=== PATIENT | male | born 1930 | race Caucasian/White ===

== ENCOUNTER 2018-03-27 15:21 | Inpatient (IN) ==
[2018-03-27] MEDS ORDERED: Diphtheria/Tetanus/Pertussis Vaccine Inj 0.5 ML Syringe IM ONE (15:25)
[2018-03-27] MEDS ORDERED: ceFAZolin 2 GM Premix Inj 2 GM/50 ML PIGGYBACK IV.SIG ONE (15:25)
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
[2018-03-27 15:41] LABS: Baso # (Auto) 0.1 th/mm3 (0.0-0.2); Baso % (Auto) 0.8 % (0.0-2.0); Eos # (Auto) 0.6 th/mm3 (0.0-0.4); Eos % (Auto) 5.5 % (0.0-4.0); Hematocrit 36.8 % (39.0-51.0); Hemoglobin 12.5 gm/dL (13.0-17.0); Lymph # (Auto) 2.4 th/mm3 (1.0-4.8); Lymph % (Auto) 22.6 % (9.0-44.0); Mean Corpuscular HGB Conc 33.9 % (32.0-36.0); Mean Corpuscular Hemoglobin 32.7 pg (27.0-34.0); Mean Corpuscular Volume 96.5 fL (80.0-100.0); Mean Platelet Volume 9.1 fL (7.0-11.0); Mono # (Auto) 0.9 th/mm3 (0.0-0.9); Mono % (Auto) 8.7 % (0.0-8.0); Neut # (Auto) 6.7 th/mm3 (1.8-7.7); Neut % (Auto) 62.4 % (16.0-70.0); Platelet Count 184 th/mm3 (150-450); Red Blood Count 3.81 mil/mm3 (4.50-5.90); Red Cell Distribution Width 15.1 % (11.6-17.2); White Blood Count 10.7 th/mm3 (4.0-11.0)
[2018-03-27 15:57] LABS: Activated Partial Thrombo Time 22.4 sec (24.3-30.1); Prothrombin Time 10.2 sec (9.8-11.6)
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
[2018-03-27] MEDS ORDERED: Lidocaine 1% Inj 50 ML Vial INFILTRATN ONE (18:09)
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
[2018-03-27] MEDS ORDERED: Acetaminophen 325 MG Tablet PO PRN (18:43)
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
[2018-03-27] MEDS: Docusate Sodium 100 MG Capsule PO SCH (21:13)
[2018-03-28] MEDS ORDERED: Chlorhexidine Gluconate 2% 1 Pack (2 Cloths) TOPICAL SCH (04:00)
[2018-03-28] MEDS ORDERED: Chlorhexidine Gluconate 2% 1 Pack (2 Cloths) TOPICAL PRN (04:00)
[2018-03-28 06:49] LABS: Baso # (Auto) 0.1 th/mm3 (0.0-0.2); Baso % (Auto) 0.7 % (0.0-2.0); Eos # (Auto) 0.6 th/mm3 (0.0-0.4); Eos % (Auto) 5.1 % (0.0-4.0); Hematocrit 34.4 % (39.0-51.0); Hemoglobin 11.3 gm/dL (13.0-17.0); Lymph # (Auto) 1.7 th/mm3 (1.0-4.8); Lymph % (Auto) 15.3 % (9.0-44.0); Mean Corpuscular Hemoglobin 32.2 pg (27.0-34.0); Mean Corpuscular Volume 97.7 fL (80.0-100.0); Mean Platelet Volume 9.5 fL (7.0-11.0); Mono % (Auto) 9.2 % (0.0-8.0); Neut # (Auto) 7.7 th/mm3 (1.8-7.7); Neut % (Auto) 69.7 % (16.0-70.0); Platelet Count 166 th/mm3 (150-450); Red Blood Count 3.52 mil/mm3 (4.50-5.90)
[2018-03-28 07:22] LABS: Calcium 8.6 mg/dL (8.5-10.1); Carbon Dioxide 28.4 meq/L (21.0-32.0); Potassium 4.1 meq/L (3.5-5.1)
[2018-03-28] MEDS: Docusate Sodium 100 MG Capsule PO SCH (08:17)
[2018-03-28 08:32] VITALS: RESP 20
--- NOTE | 2018-03-28 12:28 | P.DCO ---
- Physical Therapy Order: Evaluate and treat, Improve ambulation, Strength and gait training - Home Health Nursing Order: Medical education, Signs/symptoms of disease process, Medication education-adverse effect, Wound care and dressing changes (Assist teaching to . LEFT leg sutures. Wash daily with soap and water pat dry. May apply dressing is desired. ), Nursing assessment with vital signs - Case Management Consult Yes - Certification I have seen patient Manny Silva on 03/28/18. My clinical findings support the need for the requested home health care services because: Limited mobility due to disease progression, Deconditioned with increased weakness, Limited ability to care for self, High risk of falls I certify that my clinical findings support that this patient is homebound because: Post-op weakness, Unsafe to leave home unassisted, Unable to use public transportation Attestation/Additional Detail: Patient seen and examined during rounds is overall stable was able to ambulate with physical therapy, patient will follow up with his primary care physician about his wounds, received teaching by RN for basic wound care
[2018-03-28 12:38] VITALS: O2SAT 94
[2018-03-28 16:36] VITALS: BP 130/60; PULSE 62; TEMP 97.9
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
== END 2018-03-28 17:13 | disposition home health service (06) ==
LOC: NEPI 15:21 → MERGE 18:50 → EDBD 18:50 → NEDA 18:50 → N05 22:22
PROVIDERS: ADMIT Surgery Trauma Surgery; ATTEND Surgery Trauma Surgery